=== PATIENT | male | born 1970 | race African-American/Black ===

== ENCOUNTER 2016-12-03 02:24 | Emergency (ER) | payer OTHER ==
[2016-12-03] MEDS ORDERED: Adacel (T-DAP) 0.5 ML VIAL ONE (02:42)
[2016-12-03] MEDS ORDERED: Cephalexin 500 MG CAP ONE (02:42)
[2016-12-03] MEDS ORDERED: Triple Antibiotic Oint 1 GM Packet ONE (02:42)
[2016-12-03] MEDS ORDERED: Naproxen 500 MG TAB ONE (02:56)
[2016-12-03] MEDS ORDERED: Lidocaine 2% w/Epinephrine 1:200K 20 ML VIAL ONE (07:14)
[2016-12-03] MEDS ORDERED: Sterile Water Irrigation 250 ML BOT ONE (07:15)
== END 2016-12-03 03:05 | disposition home or self-care (01) ==
LOC: MADERS 02:24
DX: S51.811A Laceration without foreign body of right forearm, initial encounter (principal); F17.210 Nicotine dependence, cigarettes, uncomplicated; X58.XXXA Exposure to other specified factors, initial encounter
CPT/HCPCS: 12002; 90471; 90715